=== PATIENT | female | born 1995 | race Two or more races ===

== ENCOUNTER 2021-05-12 14:54 | Emergency (ER) | payer MEDICAID ==
[~2021-05-12] VITALS: Ht 165.1 cm; Wt 82.0 kg
[2021-05-12] MEDS ORDERED: KETOROLAC 30MG/ML VIAL IM ONE (15:30)
[2021-05-12 15:50] VITALS: BP 132/77
[2021-05-12] MEDS ORDERED: METH-653 MT (17:55)
[2021-05-12] MEDS ORDERED: ACET650T37 MT (17:55)
[2021-05-12] MEDS ORDERED: IBUP-2029 MT (17:55)
== END 2021-05-12 18:14 | disposition home or self-care (01) ==
LOC: ER 14:54
DX: S16.1XXA Strain of muscle, fascia and tendon at neck level, initial encounter (principal); M79.602 Pain in left arm; V43.62XA Car passenger injured in collision with other type car in traffic accident, initial encounter; Y93.89 Activity, other specified; Y92.89 Other specified places as the place of occurrence of the external cause; Y99.8 Other external cause status
CPT/HCPCS: 70450; 71045; 73030; 73080; 73110; 81025; 96372; 99284; J1885